=== PATIENT | female | born 1960 | race Caucasian/White ===

== ENCOUNTER 2018-03-18 06:37 | Emergency (ER) | payer MEDICAID ==
[~2018-03-18] VITALS: Ht 167.6 cm; Wt 88.5 kg
[2018-03-18 06:45] VITALS: BP_SYST 101
[2018-03-18] MEDS ORDERED: FUROSEMIDE 40 MG/4 ML VIAL IVP ONE (07:15)
[2018-03-18] MEDS ORDERED: KETOROLAC TROMETHAMINE 30 MG VIAL IVP ONE (07:15)
[2018-03-18 07:41] LABS: HEMATOCRIT 31.9 % (36-48); HEMOGLOBIN 10.9 g/dL (12.0-16.0); MEAN CORPUSCULAR HEMOGLOBIN 37 pg (27-31); MEAN CORPUSCULAR HGB CONC 34 % (32-36); MEAN CORPUSCULAR VOLUME 108 fL (79.0-98.0); PLATELET COUNT (AUTO) 346 K/uL (130-430); RED BLOOD CELL COUNT(AUTO) 2.96 MIL/uL (4.2-6.2); RED CELL DISTRIBUTION WIDTH 13.1 % (9.0-15.0); WHITE BLOOD COUNT (AUTO) 9.8 K/uL (4.8-10.8)
[2018-03-18] MEDS ORDERED: FUROSEMIDE 40 MG/4 ML VIAL ONE (07:42)
[2018-03-18] MEDS ORDERED: KETOROLAC TROMETHAMINE 30 MG VIAL ONE (07:42)
[2018-03-18 07:52] LABS: CALCIUM 8.8 mg/dL (8.4-11.0); CREATININE 0.59 mg/dL (0.55-1.30); POTASSIUM 3.8 mmol/L (3.5-5.1)
[2018-03-18 07:57] LABS: INR 1.1 (0.8-1.2); PROTHROMBIN TIME 11.5 SECS (9.5-12.5)
[2018-03-18 07:58] LABS: ALBUMIN 1.8 g/dL (3.4-4.8); TOTAL BILIRUBIN 7.2 mg/dL (0.0-1.0)
[2018-03-18] MEDS ORDERED: FLO44 INH (08:14)
[2018-03-18] MEDS ORDERED: MONT10TA22 (08:14)
[2018-03-18] MEDS ORDERED: LISI10TA5 PO (08:14)
[2018-03-18] MEDS ORDERED: ALBMDI INH (08:14)
[2018-03-18] MEDS ORDERED: LORA-258 PO (08:14)
[2018-03-18] MEDS ORDERED: HYDR-2489 PO (08:14)
[2018-03-18] MEDS ORDERED: ATRMDI INH (08:14)
[2018-03-18] MEDS ORDERED: NIFE90TA48 PO (08:14)
[2018-03-18] MEDS ORDERED: FLUT1DIS5 IH (08:14)
[2018-03-18 08:20] LABS: BAND % (MANUAL) 0 % (0-6); BASOPHILS % (MANUAL) 0 % (0-2); EOSINOPHILS % (MANUAL) 2 % (0-7); LYMPHOCYTES % (MANUAL) 12 % (20-46); MONOCYTES % (MANUAL) 6 % (0-11)
[2018-03-18 09:35] VITALS: BP_SYST 107
== END 2018-03-18 09:35 | disposition home or self-care (01) ==
LOC: SED 06:37
DX: R60.0 Localized edema (principal); I11.0 Hypertensive heart disease with heart failure; I50.9 Heart failure, unspecified; J44.9 Chronic obstructive pulmonary disease, unspecified; Z88.2 Allergy status to sulfonamides; Z88.8 Allergy status to other drugs, medicaments and biological substances; Z79.899 Other long term (current) drug therapy
CPT/HCPCS: 36415; 71045; 80053; 83880; 84484; 85007; 85027; 85610; 85730; 93970; 96374; 96375; 99285; J1885; J1940

== ENCOUNTER 2018-04-04 18:40 | Inpatient (IN) | payer MEDICAID ==
[~2018-04-04] VITALS: Ht 167.6 cm; Wt 99.8 kg
[~2018-04-04 18:40] MED LIST: ALBMDI INH; ATRMDI INH; FLO44 INH; FLUT1DIS5 IH; HYDR-2489 PO; LISI10TA5 PO; LORA-258 PO; MONT10TA22; NIFE90TA48 PO
[2018-04-04 18:58] VITALS: BP_SYST 122
[2018-04-04] MEDS ORDERED: FUROSEMIDE 40 MG/4 ML VIAL IVP ONE (19:30)
[2018-04-04] MEDS ORDERED: MORPHINE 4 MG/ML INJ. SYRINGE IVP ONE (19:30)
[2018-04-04] MEDS ORDERED: PIPERACILLIN/TAZO 3.38 GM in NS 50 ML IV ONE (19:30)
[2018-04-04] MEDS ORDERED: DIPHENHYDRAMINE INJ 50 MG/ML VIAL IVP ONE (19:30)
[2018-04-04] MEDS ORDERED: ceFAZolin SODIUM 1 GM in D5W 50 ML IV ONE (19:30)
[2018-04-04 19:51] LABS: BASOPHILS % (AUTO) 0.4 % (0.0-2.0); EOSINOPHILS # (AUTO) 0.2 K/uL (0.0-0.4); EOSINOPHILS % (AUTO) 1.8 % (0.0-4.0); HEMATOCRIT 32.5 % (36-48); HEMOGLOBIN 10.6 g/dL (12.0-16.0); LYMPHOCYTES # (AUTO) 2.2 K/uL (1.0-5.5); LYMPHOCYTES % (AUTO) 20.7 % (20.5-51.5); MEAN CORPUSCULAR HEMOGLOBIN 34 pg (27-31); MEAN CORPUSCULAR HGB CONC 33 % (32-36); MEAN CORPUSCULAR VOLUME 104 fL (79.0-98.0); MONOCYTES % (AUTO) 9.3 % (1.7-9.3); NEUTROPHILS # (AUTO) 7.2 K/uL (1.8-7.7); NEUTROPHILS % (AUTO) 67.8 % (40.0-70.0); PLATELET COUNT (AUTO) 350 K/uL (130-430); RED BLOOD CELL COUNT(AUTO) 3.14 MIL/uL (4.2-6.2); RED CELL DISTRIBUTION WIDTH 12.7 % (9.0-15.0); WHITE BLOOD COUNT (AUTO) 10.6 K/uL (4.8-10.8)
[2018-04-04 20:01] LABS: CREATININE 0.62 mg/dL (0.55-1.30); INR 1.1 (0.8-1.2); POTASSIUM 3.1 mmol/L (3.5-5.1); PROTHROMBIN TIME 11.1 SECS (9.5-12.5)
[2018-04-04 20:07] LABS: ALBUMIN 1.8 g/dL (3.4-4.8); TOTAL BILIRUBIN 2.5 mg/dL (0.0-1.0)
[2018-04-04] MEDS ORDERED: PIPERACILLIN/TAZOBACTAM 3.375 GM/VIAL (ZOSYN) IV ONE (20:23)
[2018-04-04] MEDS ORDERED: ceFAZolin SODIUM 1 GM VIAL ONE (20:24)
[2018-04-04 21:26] LABS: BILIRUBIN,URINE NEGATIVE (NEGATIVE); CLARITY/URINE CLEAR (CLEAR); COLOR,URINE YELLOW (YELLOW); GLUCOSE,URINE NEGATIVE (NEGATIVE); KETONES,URINE NEGATIVE (NEGATIVE); LEUKOCYTE ESTERASE ,URINE TRACE (NEGATIVE); NITRITE, URINE POSITIVE (NEGATIVE); PH,URINE 5.5 (5.0-8.0); PROTEIN URINE NEGATIVE (NEGATIVE); UROBILINOGEN,URINE 0.2 (0.2-1.0)
[2018-04-04 21:28] LABS: BLOOD, URINE TRACE (NEGATIVE)
[2018-04-04 21:32] LABS: BACTERIA,URINE MODERATE /HPF (None Seen)
[2018-04-05] VITALS (7 sets, daily range): BP systolic 103–132
[2018-04-05] MEDS ORDERED: POTASSIUM CHLORIDE 20 MEQ TAB.PRT.SR PO ONE (02:00)
[2018-04-05] MEDS: FUROSEMIDE 40 MG/4 ML VIAL IVP SCH (09:20)
[2018-04-05] MEDS: IPRATROPIUM/ALBUTEROL SULFATE 3 ML AMPUL.NEB (DUONEB) INH SCH ×4 (11:00→23:00)
[2018-04-05] MEDS: HYDROcodone/ACETAMIN 5-325 MG TAB (NORCO/ VICODIN) PO PRN (16:24)
[2018-04-06 02:00] VITALS: BP_SYST 93
[2018-04-06] MEDS: IPRATROPIUM/ALBUTEROL SULFATE 3 ML AMPUL.NEB (DUONEB) INH SCH ×6 (03:00→23:19)
[2018-04-06 06:41] LABS: INR 1.1 (0.8-1.2); PROTHROMBIN TIME 11.1 SECS (9.5-12.5)
[2018-04-06 06:58] LABS: ALBUMIN 1.3 g/dL (3.4-4.8); CALCIUM 8.6 mg/dL (8.4-11.0); CREATININE 0.62 mg/dL (0.55-1.30); TOTAL BILIRUBIN 1.9 mg/dL (0.0-1.0)
[2018-04-06 07:13] LABS: BASOPHILS % (AUTO) 0.5 % (0.0-2.0); EOSINOPHILS # (AUTO) 0.1 K/uL (0.0-0.4); EOSINOPHILS % (AUTO) 1.9 % (0.0-4.0); HEMATOCRIT 27.7 % (36-48); HEMOGLOBIN 9.2 g/dL (12.0-16.0); LYMPHOCYTES # (AUTO) 1.9 K/uL (1.0-5.5); LYMPHOCYTES % (AUTO) 31.6 % (20.5-51.5); MEAN CORPUSCULAR HEMOGLOBIN 35 pg (27-31); MEAN CORPUSCULAR HGB CONC 33 % (32-36); MEAN CORPUSCULAR VOLUME 104 fL (79.0-98.0); MONOCYTES # (AUTO) 0.7 K/uL (0.0-1.0); MONOCYTES % (AUTO) 12.1 % (1.7-9.3); NEUTROPHILS # (AUTO) 3.4 K/uL (1.8-7.7); NEUTROPHILS % (AUTO) 53.9 % (40.0-70.0); PLATELET COUNT (AUTO) 265 K/uL (130-430); POTASSIUM 2.9 mmol/L (3.5-5.1); RED BLOOD CELL COUNT(AUTO) 2.66 MIL/uL (4.2-6.2); WHITE BLOOD COUNT (AUTO) 6.1 K/uL (4.8-10.8)
[2018-04-06 08:00] VITALS: BP_SYST 116
[2018-04-06] MEDS: HYDROcodone/ACETAMIN 5-325 MG TAB (NORCO/ VICODIN) PO PRN ×2 (08:39→15:06)
[2018-04-06] MEDS: FUROSEMIDE 40 MG/4 ML VIAL IVP SCH ×2 (08:40→21:00)
[2018-04-06] MEDS ORDERED: POTASSIUM CHLORIDE 20 MEQ/PKT PACKET PO ONE (09:15)
[2018-04-06] MEDS ORDERED: KCL 20 mEq in 100 mL (PREMIX) 200 ML IV ONE (09:15)
[2018-04-06] MEDS ORDERED: ONDANSETRON HCL 4 MG/2 ML VIAL IVP PRN (10:00)
[2018-04-06] MEDS ORDERED: ACETAMINOPHEN 325 MG TABLET PO PRN (10:00)
[2018-04-06 11:25] VITALS: BP_SYST 101
[2018-04-06] MEDS: DIPHENHYDRAMINE HCL 25 MG CAPSULE PO PRN ×2 (11:26→23:15)
[2018-04-06 12:00] VITALS: BP_SYST 122
[2018-04-06] MEDS: ceFAZolin SODIUM 1 GM in D5W 50 ML IV SCH ×2 (15:08→22:34)
[2018-04-06 16:00] VITALS: BP_SYST 110
[2018-04-06] MEDS: FLOVENT 44 MCG INH SCH (19:00)
[2018-04-06 20:00] VITALS: BP_SYST 106
[2018-04-06] MEDS ORDERED: SPIRONOLACTONE 25 MG TABLET (ALDACTONE) PO SCH (21:00)
[2018-04-06] MEDS: LACTULOSE 20 GM/30 ML UDC PO SCH (21:00)
[2018-04-06] MEDS: SPIRONOLACTONE 50 MG TABLET (ALDACTONE) PO SCH (21:24)
[2018-04-06] MEDS: FAMOTIDINE 20 MG TABLET PO SCH (21:25)
[2018-04-06] MEDS: FLUTICASONE/VILANTEROL 1 EACH BLST.W.DEV IH SCH (22:44)
[2018-04-07] MEDS: IPRATROPIUM/ALBUTEROL SULFATE 3 ML AMPUL.NEB (DUONEB) INH SCH ×6 (03:00→23:00)
[2018-04-07 05:59] LABS: BASOPHILS % (AUTO) 0.3 % (0.0-2.0); EOSINOPHILS # (AUTO) 0.1 K/uL (0.0-0.4); EOSINOPHILS % (AUTO) 2.3 % (0.0-4.0); HEMATOCRIT 26.8 % (36-48); HEMOGLOBIN 8.8 g/dL (12.0-16.0); LYMPHOCYTES # (AUTO) 1.9 K/uL (1.0-5.5); LYMPHOCYTES % (AUTO) 33.1 % (20.5-51.5); MEAN CORPUSCULAR HEMOGLOBIN 34 pg (27-31); MEAN CORPUSCULAR HGB CONC 33 % (32-36); MEAN CORPUSCULAR VOLUME 104 fL (79.0-98.0); MONOCYTES # (AUTO) 0.8 K/uL (0.0-1.0); MONOCYTES % (AUTO) 12.8 % (1.7-9.3); NEUTROPHILS # (AUTO) 3.1 K/uL (1.8-7.7); NEUTROPHILS % (AUTO) 51.5 % (40.0-70.0); PLATELET COUNT (AUTO) 240 K/uL (130-430); RED BLOOD CELL COUNT(AUTO) 2.59 MIL/uL (4.2-6.2); RED CELL DISTRIBUTION WIDTH 12.2 % (9.0-15.0); WHITE BLOOD COUNT (AUTO) 5.9 K/uL (4.8-10.8)
[2018-04-07 06:11] LABS: ALBUMIN 1.3 g/dL (3.4-4.8); CALCIUM 8.5 mg/dL (8.4-11.0); CREATININE 0.65 mg/dL (0.55-1.30); POTASSIUM 3.4 mmol/L (3.5-5.1); TOTAL BILIRUBIN 1.7 mg/dL (0.0-1.0)
[2018-04-07] MEDS: ceFAZolin SODIUM 1 GM in D5W 50 ML IV SCH (06:16)
[2018-04-07] MEDS: FLOVENT 44 MCG INH SCH (07:00)
[2018-04-07 07:01] LABS: TOTAL IRON BIND. CAPACITY 159 ug/dL (250-450)
[2018-04-07] MEDS: FLUTICASONE/VILANTEROL 1 EACH BLST.W.DEV IH SCH ×2 (07:52→18:25)
[2018-04-07 08:02] VITALS: BP_SYST 101
[2018-04-07] MEDS ORDERED: POTASSIUM CHLORIDE 20 MEQ TAB.PRT.SR PO ONE (08:45)
[2018-04-07] MEDS: LACTULOSE 20 GM/30 ML UDC PO SCH ×2 (09:00→20:49)
[2018-04-07] MEDS: FUROSEMIDE 40 MG/4 ML VIAL IVP SCH ×2 (09:55→20:49)
[2018-04-07] MEDS: POTASSIUM CHLORIDE 20 MEQ/PKT PACKET PO SCH (09:55)
[2018-04-07] MEDS: CITALOPRAM HYDROBROMIDE 20 MG TABLET PO SCH (09:56)
[2018-04-07] MEDS: FAMOTIDINE 20 MG TABLET PO SCH ×2 (09:58→20:37)
[2018-04-07] MEDS: HYDROcodone/ACETAMIN 5-325 MG TAB (NORCO/ VICODIN) PO PRN ×2 (09:58→15:58)
[2018-04-07] MEDS: ENOXAPARIN SODIUM 30 MG/0.3 ML SYRINGE SUBCUT SCH (09:59)
[2018-04-07] MEDS: SPIRONOLACTONE 50 MG TABLET (ALDACTONE) PO SCH ×2 (09:59→20:43)
[2018-04-07] MEDS: DIPHENHYDRAMINE HCL 25 MG CAPSULE PO PRN (11:24)
[2018-04-07 11:30] VITALS: BP_SYST 109
[2018-04-07] MEDS: ALPRAZolam 0.25 MG TABLET PO PRN (12:00)
[2018-04-07 12:20] VITALS: BP_SYST 101
[2018-04-07] MEDS ORDERED: cefTRIAXone 1 GM IVPB PREMIX 50 ML IV ONE (14:30)
[2018-04-07 16:00] VITALS: BP_SYST 147
[2018-04-07] MEDS ORDERED: CLOTRIMAZOLE/BETAMET DIPROP 15 GM TUBE TP SCH (21:00)
[2018-04-07 23:30] VITALS: BP_SYST 109
[2018-04-08] MEDS: HYDROcodone/ACETAMIN 5-325 MG TAB (NORCO/ VICODIN) PO PRN ×2 (00:09→10:13)
[2018-04-08] MEDS: DIPHENHYDRAMINE HCL 25 MG CAPSULE PO PRN (00:09)
[2018-04-08] MEDS: ALPRAZolam 0.25 MG TABLET PO PRN ×2 (01:15→15:09)
[2018-04-08] MEDS: IPRATROPIUM/ALBUTEROL SULFATE 3 ML AMPUL.NEB (DUONEB) INH SCH ×3 (03:00→11:16)
[2018-04-08] MEDS: FLUTICASONE/VILANTEROL 1 EACH BLST.W.DEV IH SCH (06:49)
[2018-04-08 08:00] VITALS: BP_SYST 98
[2018-04-08 08:11] LABS: BASOPHILS # (AUTO) 0.1 K/uL (0.0-0.2); BASOPHILS % (AUTO) 1.1 % (0.0-2.0); EOSINOPHILS # (AUTO) 0.2 K/uL (0.0-0.4); EOSINOPHILS % (AUTO) 3.2 % (0.0-4.0); HEMOGLOBIN 9.1 g/dL (12.0-16.0); LYMPHOCYTES # (AUTO) 1.8 K/uL (1.0-5.5); LYMPHOCYTES % (AUTO) 30.3 % (20.5-51.5); MEAN CORPUSCULAR HEMOGLOBIN 35 pg (27-31); MEAN CORPUSCULAR HGB CONC 34 % (32-36); MEAN CORPUSCULAR VOLUME 103 fL (79.0-98.0); MONOCYTES # (AUTO) 0.6 K/uL (0.0-1.0); MONOCYTES % (AUTO) 10.5 % (1.7-9.3); NEUTROPHILS # (AUTO) 3.2 K/uL (1.8-7.7); PLATELET COUNT (AUTO) 251 K/uL (130-430); RED BLOOD CELL COUNT(AUTO) 2.62 MIL/uL (4.2-6.2); RED CELL DISTRIBUTION WIDTH 12.3 % (9.0-15.0); WHITE BLOOD COUNT (AUTO) 5.9 K/uL (4.8-10.8)
[2018-04-08 08:33] LABS: CALCIUM 8.6 mg/dL (8.4-11.0); CREATININE 0.67 mg/dL (0.55-1.30); POTASSIUM 3.6 mmol/L (3.5-5.1)
[2018-04-08] MEDS ORDERED: cefTRIAXone 1 GM IVPB PREMIX 50 ML IV SCH (09:00)
[2018-04-08] MEDS: LACTULOSE 20 GM/30 ML UDC PO SCH (09:00)
[2018-04-08] MEDS: SPIRONOLACTONE 50 MG TABLET (ALDACTONE) PO SCH (09:30)
[2018-04-08] MEDS: ENOXAPARIN SODIUM 30 MG/0.3 ML SYRINGE SUBCUT SCH (09:30)
[2018-04-08] MEDS: FAMOTIDINE 20 MG TABLET PO SCH (09:30)
[2018-04-08] MEDS: CITALOPRAM HYDROBROMIDE 20 MG TABLET PO SCH (09:30)
[2018-04-08] MEDS: POTASSIUM CHLORIDE 20 MEQ/PKT PACKET PO SCH (09:31)
[2018-04-08] MEDS: FUROSEMIDE 40 MG/4 ML VIAL IVP SCH (09:32)
[2018-04-08 11:54] LABS: NEUTROPHILS % (AUTO) 54.9 % (40.0-70.0)
[2018-04-08 12:02] VITALS: BP_SYST 109
[2018-04-08 15:26] VITALS: BP_SYST 108
[2018-04-08] MEDS ORDERED: cefTRIAXone 1 GM in D5W 50 ML IV SCH (16:00)
== END 2018-04-08 16:15 ==
LOC: SED 18:40 → STU 23:17
PROVIDERS: ADMIT Internal Medicine Hospice and Palliative Medicine; ATTEND Internal Medicine Hospice and Palliative Medicine
DX: K74.60 Unspecified cirrhosis of liver (principal); I27.81 Cor pulmonale (chronic); L03.115 Cellulitis of right lower limb; E88.09 Other disorders of plasma-protein metabolism, not elsewhere classified; K73.9 Chronic hepatitis, unspecified; E66.01 Morbid (severe) obesity due to excess calories; I87.2 Venous insufficiency (chronic) (peripheral); E11.9 Type 2 diabetes mellitus without complications; L03.116 Cellulitis of left lower limb; G89.4 Chronic pain syndrome; D64.9 Anemia, unspecified; I49.9 Cardiac arrhythmia, unspecified; I10 Essential (primary) hypertension; J44.9 Chronic obstructive pulmonary disease, unspecified; Z68.35 Body mass index [BMI] 35.0-35.9, adult; Z88.8 Allergy status to other drugs, medicaments and biological substances; Z88.2 Allergy status to sulfonamides; Z87.891 Personal history of nicotine dependence; Z79.899 Other long term (current) drug therapy; Z71.41 Alcohol abuse counseling and surveillance of alcoholic; Z71.6 Tobacco abuse counseling
CPT/HCPCS: 36415; 71045; 76700-TC; 80048; 80053; 81000-TC; 83540-TC; 83550-TC; 83605; 83880; 84484; 85025; 85610-TC; 87040-TC; 87086; 87186-TC; 93005; 93306; 93970; 94640; 94760; 96365; 96367; 96375; 99285; J0690; J0696; J1200; J1650; J1940; J2270; J2543; J3480; J7060; J7620; Q0163

== ENCOUNTER 2018-06-12 07:34 | Inpatient (IN) | payer MEDICAID ==
[~2018-06-12] VITALS: Ht 167.6 cm; Wt 78.5 kg
[2018-06-12 07:43] VITALS: BP_SYST 104
--- NOTE | 2018-06-12 07:56 | NUR ---
Patient to ER bed 4 to gown for evaluation. Side rails up. Report given to Dariusz ESCOBAR.
--- NOTE | 2018-06-12 07:59 | NUR ---
ER at bedside examining patient.
[2018-06-12] MEDS ORDERED: ONDANSETRON HCL 4 MG/2 ML VIAL IVP ONE (08:00)
[2018-06-12] MEDS ORDERED: NS 500 ML IV ONE (08:00)
[2018-06-12] MEDS ORDERED: MORPHINE 2 MG/ML INJ. SYRINGE IVP ONE (08:00)
[2018-06-12] MEDS ORDERED: cefTRIAXone 1 GM IVPB PREMIX 50 ML IV ONE (08:45)
--- NOTE | 2018-06-12 08:57 | NUR ---
Discussed with Dr. Suarez care of patient. Dr. Suarez states patient is going home there is no indication for blood cultures, rocephine is to be given now.
[2018-06-12] MEDS ORDERED: KETOROLAC TROMETHAMINE 15 MG VIAL IVP ONE (09:00)
[2018-06-12 09:16] LABS: CALCIUM 7.9 mg/dL (8.4-11.0); CREATININE 0.63 mg/dL (0.55-1.30); POTASSIUM 3.7 mmol/L (3.5-5.1)
[2018-06-12 09:22] LABS: BASOPHILS % (AUTO) 0.2 % (0.0-2.0); HEMATOCRIT 39.1 % (36-48); HEMOGLOBIN 13.1 g/dL (12.0-16.0); LYMPHOCYTES # (AUTO) 1.1 K/uL (1.0-5.5); LYMPHOCYTES % (AUTO) 11.5 % (20.5-51.5); MEAN CORPUSCULAR HEMOGLOBIN 32 pg (27-31); MEAN CORPUSCULAR HGB CONC 34 % (32-36); MEAN CORPUSCULAR VOLUME 94 fL (79.0-98.0); MONOCYTES # (AUTO) 1.7 K/uL (0.0-1.0); MONOCYTES % (AUTO) 17.4 % (1.7-9.3); NEUTROPHILS # (AUTO) 6.9 K/uL (1.8-7.7); NEUTROPHILS % (AUTO) 70.9 % (40.0-70.0); PLATELET COUNT (AUTO) 132 K/uL (130-430); RED BLOOD CELL COUNT(AUTO) 4.15 MIL/uL (4.2-6.2); RED CELL DISTRIBUTION WIDTH 15.7 % (9.0-15.0)
[2018-06-12 09:23] LABS: ALBUMIN 2.6 g/dL (3.4-4.8); TOTAL BILIRUBIN 0.6 mg/dL (0.0-1.0)
[2018-06-12 09:26] LABS: INR 1.1 (0.8-1.2); PROTHROMBIN TIME 10.8 SECS (9.5-12.5); WHITE BLOOD COUNT (AUTO) 9.7 K/uL (4.8-10.8)
[2018-06-12] MEDS ORDERED: ENOXAPARIN SODIUM 80 MG/0.8 ML SYRINGE SUBCUT ONE (09:45)
[2018-06-12] MEDS ORDERED: ASPIRIN 325 MG TABLET PO ONE ×2 (09:45→13:45)
--- NOTE | 2018-06-12 09:45 | NUR ---
Pt has elevated troponin. informed orders received.
--- NOTE | 2018-06-12 10:06 | NUR ---
Medications given to pt, tolerated well
[2018-06-12] MEDS ORDERED: SPIR50TA PO (10:09)
--- NOTE | 2018-06-12 10:10 | NUR ---
Medication reconciliation completed with information provided by patient. Any prior medication reconciliation on file was reviewed and corrected.
--- NOTE | 2018-06-12 10:50 | NUR ---
Patient will be admitted to care of . Admitted to TELEMETRY unit. Will go to room 118A.Summary report printed. Report will be given at bedside.
--- NOTE | 2018-06-12 10:52 | NUR ---
ADMISSION NOTE Received patient from ER via [facility], received report from TANISHA ESCOBAR. Patient admitted with diagnosis of ACUTE MYOCARDIAL INFARCTION. Patient oriented to hospital routine, call light, toileting and safety-patient verbalized understanding.
--- NOTE | 2018-06-12 10:57 | NUR ---
CONSULT CARDIOLOGY ACUTE MA DR DUNHAM [phone] S/W [facility] OFFICE
[2018-06-12 11:00] VITALS: BP_SYST 118
--- NOTE | 2018-06-12 12:36 | NUR ---
Rounds: Patient laying in bed resting. Patient denies pain and discomfort. Breathing is even and unlabored with no distress noted. Safety precautions in place and call light within reach. No needs at this time, will continue to monitor.
[2018-06-12] MEDS ORDERED: ENALAPRILAT DIHYDRATE 1.25 MG/ML VIAL IVP PRN (13:45)
[2018-06-12] MEDS ORDERED: NITROGLYCERIN 0.4 MG/HR PATCH.TD24 TD ONE (13:45)
[2018-06-12] MEDS ORDERED: *LOVENOX 1MG/KG Q12H/PHARMACY XX SCH (13:45)
[2018-06-12] MEDS ORDERED: METOPROLOL TARTRATE 25 MG TABLET PO ONE (13:45)
[2018-06-12] MEDS ORDERED: FLUTICASONE 44 mcg/ACTUATION MDI AER.W.ADAP INH SCH (13:45)
--- NOTE | 2018-06-12 14:53 | NUR ---
PATIENT REFUSED MEDS: PATIENT REFUSED ASPIRIN STATING SHE TOOK ONE IN THE ER. PATIENT ALSO REFUSED NITRO-DUR PATCH STATING "THE PAIN IS NOT IN MY CHEST ITS IN MY LOWER LEFT RIB CAGE". LOPRESSOR HELD DUE TO LOW BP OF 90/57.
[2018-06-12] MEDS: IPRATROPIUM BROM 0.5 MG/2.5 ML VIAL.NEB (ATROVENT) INH SCH ×2 (15:00→17:53)
[2018-06-12] MEDS ORDERED: IPRATROPIUM BROMIDE 17 mCg/ACTUATION, 12.9 GM AER.W.ADAP INH SCH (15:00)
--- NOTE | 2018-06-12 15:10 | NUR ---
Paged Dr. Sanders: Paged Dr. Sanders regarding critical lab, elevated Troponin 0.191. Awaiting callback.
--- NOTE | 2018-06-12 16:10 | NUR ---
WOUND EVALUATION: Wound Consult received from Dr. Stover. Thank you, Dr. Stover, for the consult. Patient received in a [place] Bed with an IsoFlex DARIA mattress, awake, alert, and oriented. Patient is able to turn in bed independently. Janes Score is a 19. Past Medical History: COPD. CHF, Diabetes Mellitus. Recent Labs: WBC 9.7, RBC 4.15, hemoglobin 13.1, hematocrit 39.1, sodium 130, chloride 97, glucose 104, calcium 7.9, albumin 2.6. No Microbiology reports. Intrinsic factors that delay wound healing: COPD. CHF, Diabetes Mellitus. Extrinsic factors that delay wound healing: Decreased mobility. Wound Assessment: 1. Right lateral heel: Unstageable pressure ulcer, present on admission. Wound bed has 60% yellow slough, 40% dull red tissue. No odor, scant yellow purulent drainage. Periwound has yellow eschar. Wound measures 1.5 cm x 1.4 cm. Recommend: Cleanse wound with normal saline. Apply SurePrep to don-wound. Apply Venelex ointment onto wound bed. Cover with foam dressing. Perform wound care daily, and as needed for dressing soiling or dislodgement. Also recommend: Encourage and assist patient as needed with repositioning every 2 hours with pillow support, and off-load pressure areas with pillows for pressure re-distribution. Offload, elevate and float bilateral heels with pillows. Perform skin care and monitor skin integrity Q shift.
[2018-06-12 16:15] VITALS: BP_SYST 90
[2018-06-12] MEDS: BALSAM PERU/CASTOR OIL 60 GM OINT...G. TP SCH (16:19)
--- NOTE | 2018-06-12 16:20 | NUR ---
Wound Care: Wound care done to right lateral heel. Cleansed with normal saline, patted dry. Applied Venelex to wound bed and Sureprep to periwound. Covered with foam dressing.
[2018-06-12 16:33] VITALS: BP_SYST 104
--- NOTE | 2018-06-12 17:12 | NUR ---
PAGING GROUP CONTRACT ANALYST MD: PAGING GROUP CONTRACT ANALYST MD REGARDING PATIENT COMPLAIN OF PAIN. AWAITING CALLBACK.
--- NOTE | 2018-06-12 17:25 | NUR ---
SPOKE TO DR. BARBOSA: SPOKE TO DR. BARBOSA, ORDERS RECEIVED FOR NORCO 10-325 MG PO PRN Q4HRS. ORDERS TO BE ENTERED BY RN.
[2018-06-12] MEDS: HYDROcodone/ACETAMIN 10-325 MG TAB PO PRN (17:44)
--- NOTE | 2018-06-12 18:25 | NUR ---
Closing Note: Patient laying in bed resting. Patient given pain meds, see eMAR, will reassess. Breathing is even and unlabored on room air, no distress noted. IV patent and intact and saline locked. Wound dressing clean, dry and intact. Safety precautions in place; bed in lowest position, wheels locked, side rails x3, bed alarm activated and call light within reach. All needs met. Will endorse plan of care to NOC, nurse.
--- NOTE | 2018-06-12 19:15 | NUR ---
OPENING NOTE Received report from Dianne. Patient resting in bed awake, alert, oriented x4. Family at the bedside. Breathing unlabored and even on room air. No signs of distress, no needs at this time. Fall and safety precautions in place. Bed in lowest position, brake on, call light within reach. IV access saline locked. Will continue to monitor.
[2018-06-12 20:19] VITALS: BP_SYST 91
[2018-06-12] MEDS: METOPROLOL TARTRATE 25 MG TABLET PO SCH (20:49)
[2018-06-12] MEDS: ENOXAPARIN SODIUM 80 MG/0.8 ML SYRINGE SUBCUT SCH (20:49)
--- NOTE | 2018-06-12 20:50 | NUR ---
Med pass. Held scheduled dose of lopressor due to low blood pressure.
--- NOTE | 2018-06-12 21:57 | NUR ---
CRITICAL LAB: TROPONIN 0.114 (TRENDING DOWN)
[2018-06-12 23:10] VITALS: BP_SYST 120
--- NOTE | 2018-06-12 23:14 | NUR ---
Patient resting in bed with eyes closed. Breathing unlabored and even on room air. No signs of distress, no needs at this time. Fall and safety precautions in place. Bed in lowest position, brake on, call light within reach. Will continue to monitor.
[2018-06-13] MEDS: HYDROcodone/ACETAMIN 10-325 MG TAB PO PRN ×2 (00:34→21:01)
--- NOTE | 2018-06-13 00:36 | NUR ---
Patient c/o pain. Administered PRN [place] PO as ordered. Educated patient on safety and side effects. Encouraged call for assist.
[2018-06-13 00:38] VITALS: BP_SYST 99
[2018-06-13 07:06] LABS: POTASSIUM 3.5 mmol/L (3.5-5.1)
[2018-06-13 07:07] LABS: CALCIUM 7.9 mg/dL (8.4-11.0); CREATININE 0.74 mg/dL (0.55-1.30)
[2018-06-13 07:08] LABS: BASOPHILS % (AUTO) 0.3 % (0.0-2.0); EOSINOPHILS % (AUTO) 0.7 % (0.0-4.0); HEMATOCRIT 33.2 % (36-48); HEMOGLOBIN 10.9 g/dL (12.0-16.0); LYMPHOCYTES # (AUTO) 1.6 K/uL (1.0-5.5); LYMPHOCYTES % (AUTO) 24.7 % (20.5-51.5); MEAN CORPUSCULAR HEMOGLOBIN 31 pg (27-31); MEAN CORPUSCULAR HGB CONC 33 % (32-36); MEAN CORPUSCULAR VOLUME 96 fL (79.0-98.0); MONOCYTES # (AUTO) 1.1 K/uL (0.0-1.0); MONOCYTES % (AUTO) 16.6 % (1.7-9.3); NEUTROPHILS # (AUTO) 3.8 K/uL (1.8-7.7); NEUTROPHILS % (AUTO) 57.7 % (40.0-70.0); RED BLOOD CELL COUNT(AUTO) 3.47 MIL/uL (4.2-6.2); RED CELL DISTRIBUTION WIDTH 15.5 % (9.0-15.0); WHITE BLOOD COUNT (AUTO) 6.5 K/uL (4.8-10.8)
--- NOTE | 2018-06-13 07:15 | NUR ---
Opening Note: Patient laying in bed resting. Patient denies pain and discomfort. Breathing is even and unlabored on room air, no distress noted. IV patent and intact and saline locked. Safety precautions in place; bed in lowest position, wheels locked, side rails x3, bed alarm activated and call light within reach. No needs at this time. Will continue to monitor.
[2018-06-13 07:23] LABS: TOTAL BILIRUBIN 0.3 mg/dL (0.0-1.0)
--- NOTE | 2018-06-13 07:23 | NUR ---
CLOSING NOTE Gave report to Dianne. Patient resting in bed awake, alert, oriented x4. Breathing unlabored and even on room air. No signs of distress, no needs at this time. Fall and safety precautions in place. Bed in lowest position, brake on, call light within reach. Endorsed care to day shift nurse.
[2018-06-13 07:24] LABS: ALBUMIN 2.1 g/dL (3.4-4.8); THYROID STIMULATING HORMONE 13.75 uIu/mL (0.34-4.82)
--- NOTE | 2018-06-13 08:04 | NUR ---
Nutrition Update Janes Scale 18 noted. Pt admitted for acute UT. Diet: 2 gm Na BMI: 27.9 kg/m2 RD to follow per nutrition care standards.
[2018-06-13] MEDS: IPRATROPIUM BROM 0.5 MG/2.5 ML VIAL.NEB (ATROVENT) INH SCH ×4 (08:12→20:02)
[2018-06-13 08:18] VITALS: BP_SYST 96
--- NOTE | 2018-06-13 08:18 | NUR ---
Dr. Sanders at bedside/BP med Clarification: Dr. Sanders at bedside, made aware of BP. Per Dr. Sanders "If the blood pressure doesn't get higher hold the Aldactone and Lopressor. If the blood pressure does get higher just give the Lopressor and hold the Aldactone." Will reassess BP before medication administration.
[2018-06-13 08:27] LABS: PLATELET COUNT (AUTO) 142 K/uL (130-430)
[2018-06-13] MEDS: ASPIRIN 325 MG TABLET PO SCH (08:33)
[2018-06-13] MEDS: BALSAM PERU/CASTOR OIL 60 GM OINT...G. TP SCH (08:34)
[2018-06-13] MEDS: ENOXAPARIN SODIUM 80 MG/0.8 ML SYRINGE SUBCUT SCH ×2 (08:35→21:02)
[2018-06-13] MEDS: METOPROLOL TARTRATE 25 MG TABLET PO SCH ×2 (08:35→21:00)
[2018-06-13] MEDS: NITROGLYCERIN 0.4 MG/HR PATCH.TD24 TD SCH (08:36)
[2018-06-13] MEDS: SPIRONOLACTONE 50 MG TABLET (ALDACTONE) PO SCH (08:36)
--- NOTE | 2018-06-13 08:39 | NUR ---
Wound Care: Wound care done to right lateral heel. cleansed with normal saline, patted dry. Applied Venelex to wound bed, applied sureprep to periwound. Covered with foam dressing. Patient tolerated well.
--- NOTE | 2018-06-13 10:26 | NUR ---
Rounds: Patient in bed resting. No distress noted. WIll continue to monitor.
--- NOTE | 2018-06-13 11:55 | NUR ---
Rounds: Patient laying in bed resting. Patient denies pain and discomfort. Breathing is even and unlabored with no distress noted. Morning mediations tolerated well. Safety precautions in place and call light within reach. No needs at this time, will continue to monitor.
[2018-06-13 12:00] VITALS: BP_SYST 101
--- NOTE | 2018-06-13 13:51 | NUR ---
Spoke to Dr. Stover: Spoke to Dr. Stover regarding CXR results, right lower lobe infiltrates/pneumonia, recommended antibiotic. Per Dr. Stover "Oh no, she doesn't need them."
[2018-06-13 16:00] VITALS: BP_SYST 97
--- NOTE | 2018-06-13 18:37 | NUR ---
Closing Note: Patient laying in bed resting. Patient denies pain and discomfort. Breathing is even and unlabored on room air, no distress noted. IV patent and intact and saline locked. Wound dressing clean, dry and intact. Safety precautions in place; bed in lowest position, wheels locked, side rails x3, bed alarm activated and call light within reach. All needs met. Will endorse plan of care to NOC, nurse.
--- NOTE | 2018-06-13 19:15 | NUR ---
OPENING NOTE Received report from Dianne. Patient resting in bed awake, alert, oriented x4. Family at the bedside. Breathing unlabored and even on room air. No signs of distress, no needs at this time. Fall and safety precautions in place. Bed in lowest position, brake on, call light within reach. Will continue to monitor.
[2018-06-13 20:00] VITALS: BP_SYST 105
--- NOTE | 2018-06-13 21:06 | NUR ---
Med pass. Held scheduled lopressor due to low BP.
[2018-06-13 23:00] VITALS: BP_SYST 100
--- NOTE | 2018-06-14 02:23 | NUR ---
ENDORSED CARE OF PATIENT TO LUZ WILSON.
--- NOTE | 2018-06-14 04:44 | NUR ---
late entry due to patient care [place] of care. Received report from LUZ Herr at 0223. Resting quietly with eyes closed. No apparent distress noted. Respirations even and unlabored on room air with visible chest rise and fall. No c/o pain or discomfort. Fall precautions in place. Call light within reach. Bed with two siderails up in low, locked position. Bed alarm activated. Will continue to monitor.
--- NOTE | 2018-06-14 05:49 | NUR ---
Awake, alert & oriented x 3. Josiane, RT performing EKG. No apparent distress noted. Cooperative with care. No c/o pain or discomfort. Fall precautions in place. Call light within reach. Bed in low, locked position.
--- NOTE | 2018-06-14 07:13 | NUR ---
Closing Note Resting quietly with eyes closed. Respirations even and unlabored on room air. No c/o pain or discomfort. Saline lock intact & patent. Able to turn self in bed. Fall precautions in place. Siderails up x 2. Call light within reach. Bed in low, locked position. Bed alarm activated. Report given to LUZ Nova.
[2018-06-14] MEDS: IPRATROPIUM BROM 0.5 MG/2.5 ML VIAL.NEB (ATROVENT) INH SCH ×2 (07:28→11:08)
[2018-06-14 08:00] VITALS: BP_SYST 115
--- NOTE | 2018-06-14 08:00 | NUR ---
Opening Note Report received from [facility] shift nurse. Patient is currently awake and receiving a breathing treatment. Patient stated that she never reported and chest pain. She only has mild and controlled pain on the left lower ribs. Iv is on the LAC 22g, saline locked. call light is within reach and bed is in low position. Will continue to monitor.
[2018-06-14] MEDS: NITROGLYCERIN 0.4 MG/HR PATCH.TD24 TD SCH (08:13)
[2018-06-14] MEDS: METOPROLOL TARTRATE 25 MG TABLET PO SCH (08:52)
[2018-06-14] MEDS: ASPIRIN 325 MG TABLET PO SCH (09:00)
[2018-06-14] MEDS: SPIRONOLACTONE 50 MG TABLET (ALDACTONE) PO SCH (09:01)
[2018-06-14] MEDS: ENOXAPARIN SODIUM 80 MG/0.8 ML SYRINGE SUBCUT SCH (09:02)
[2018-06-14] MEDS: BALSAM PERU/CASTOR OIL 60 GM OINT...G. TP SCH (09:03)
--- NOTE | 2018-06-14 10:20 | NUR ---
MD Rounds Dr. Stover rounded on the patient. MD is aware of the CT chest results and stated patient may be discharged.
[2018-06-14] MEDS ORDERED: LEVOFLOXACIN 500 MG/D5W 100 ML IV SCH (10:45)
[2018-06-14] MEDS: HYDROcodone/ACETAMIN 10-325 MG TAB PO PRN (11:32)
[2018-06-14] MEDS ORDERED: LEVO250T2 PO (12:26)
[2018-06-14] MEDS ORDERED: MEDROL PACK PO (12:28)
[2018-06-14 12:30] VITALS: BP_SYST 110
--- NOTE | 2018-06-14 12:30 | NUR ---
Rounds IV Levaquin infused. Ambulated the patient around the unit. Patient tolerated well. She is currently waiting for her son to pick her up.
[2018-06-14 13:58] VITALS: BP_SYST 115
--- NOTE | 2018-06-14 14:20 | NUR ---
Spoke with Spoke with Dr. Stover report CT chest results. MD stated patient may be discharged.
--- NOTE | 2018-06-14 15:00 | NUR ---
Transition of Care Note All transition of care instructions and prescriptions were provided to the patient. IV and ID band were removed. Patient left the unit in stable condition
== END 2018-06-14 15:00 | disposition home or self-care (01) | DRG 190 ==
LOC: SED 07:34 → STU 10:15
PROVIDERS: ADMIT Internal Medicine Hospice and Palliative Medicine; ATTEND Internal Medicine Hospice and Palliative Medicine
DX: I21.A1 Myocardial infarction type 2 (principal); J18.1 Lobar pneumonia, unspecified organism; I27.81 Cor pulmonale (chronic); I11.0 Hypertensive heart disease with heart failure; I50.9 Heart failure, unspecified; J44.1 Chronic obstructive pulmonary disease with (acute) exacerbation; F17.200 Nicotine dependence, unspecified, uncomplicated; J44.0 Chronic obstructive pulmonary disease with (acute) lower respiratory infection; I87.8 Other specified disorders of veins; R09.02 Hypoxemia; R73.03 Prediabetes; Z88.8 Allergy status to other drugs, medicaments and biological substances; Z88.2 Allergy status to sulfonamides; R07.81 Pleurodynia
CPT/HCPCS: 36415; 36600; 71045; 71046-TC; 71250-TC; 80053; 80061; 82803-TC; 83880; 84439; 84443-TC; 84484; 85025; 85610-TC; 85730-TC; 93005; 93306; 94640; 94760; 96365; 96372; 96375; 99285; G0378; J0696; J1650; J1885; J1956; J2405; J7040